=== PATIENT | female | born 1955 | race African-American/Black ===

== ENCOUNTER 2023-02-16 16:11 | Emergency (ER) | payer BC, OTHER ==
[2023-02-16 16:18] VITALS: BP 171/76; PULSE 63; RESP 19; TEMP 98.4; BMI 31.3
[2023-02-16] MEDS ORDERED: ACETAMINOPHEN 325 MG TABLET (FP) PO ONE (18:40)
[2023-02-16] MEDS ORDERED: ACETAMINOPHEN 325 MG TABLET (FP) ONE (18:42)
== END 2023-02-16 19:15 | disposition home or self-care (01) ==
LOC: JERFT 16:11
DX: R51.9 Headache, unspecified (principal)
CPT/HCPCS: 70450-TC; 72125-TC; 99284-25

== ENCOUNTER 2024-11-27 16:35 | Observation (INO) | payer OTHER, BC ==
[2024-11-27 17:02] VITALS: BMI 30.4
[2024-11-27 19:02] LABS: BASO % 0.9 % (0-2.0); EOS % 4.1 % (0-4.5); HEMATOCRIT 35.5 % (32.4-45.2); HEMOGLOBIN 11.6 GM/dL (10.7-15.3); MCH 28.2 pg (25.7-33.7); MCHC 32.6 g/dl (32.0-36.0); MEAN CELL VOLUME 86.5 fl (80-96); MEAN PLT VOLUME 6.7 fl (7.5-11.1); MONO % 7.2 % (3.8-10.2); NEUT % 49.8 % (42.8-82.8); PLATELET COUNT 357 10^3/uL (134-434); RBC 4.11 M/mm3 (3.60-5.2); RDW 15.9 % (11.6-15.6); WHITE BLOOD COUNT 7.2 K/mm3 (4.0-10.0)
[2024-11-27 19:08] LABS: INR 0.9 (0.83-1.09); PROTHROMBIN TIME (PATIENT) 10.2 SEC (9.7-13.0)
[2024-11-27 19:11] LABS: ACTIVATED PTT 28.3 SECONDS (25.2-36.5)
[2024-11-27 19:26] LABS: CHOLESTEROL 159 mg/dL (50-200)
[2024-11-27 19:27] LABS: LDL CHOLESTEROL (ONLY SJRH) 76 mg/dL (5-100); POTASSIUM 4.2 mmol/L (3.5-5.1)
[2024-11-27 19:29] LABS: CALCIUM 9.6 mg/dL (8.5-10.1); HDL CHOLESTEROL 67 mg/dL (40-60)
[2024-11-27 19:30] LABS: ALBUMIN 3.5 g/dl (3.4-5.0)
[2024-11-27 19:33] LABS: CREATININE 1.3 mg/dL (0.55-1.3)
[2024-11-27 19:34] LABS: BILIRUBIN,TOTAL 0.4 mg/dL (0.2-1); TOT PROT 7.2 g/dl (6.4-8.2)
[2024-11-27 21:05] LABS: EPI CELLS 12 /uL (0-25.1); HYALINE CASTS 0 /uL (0-3.1); PH,URINE 5.5 (5.0-8.0); URINE APPEARANCE CLEAR; URINE BACTERIA 3 /uL (0-1359); URINE BILIRUBIN NEGATIVE (NEGATIVE); URINE COLOR YELLOW; URINE GLUCOSE (UA) NEGATIVE (NEGATIVE); URINE KETONE NEGATIVE (NEGATIVE); URINE LEUK ESTERASE NEGATIVE (NEGATIVE); URINE NITRITE NEGATIVE (NEGATIVE); URINE PROTEIN 2+ (NEGATIVE); URINE RBC 9 /uL (0-23.9); URINE UROBILINOGEN 0.2 mg/dL (0.2-1.0); URINE WBC 12 /uL (0-25.8)
[2024-11-28] MEDS: ASPIRIN 325 MG TABLET PO ONE (02:37)
[2024-11-28] MEDS ORDERED: MECLIZINE HCL 25 MG TABLET (FP) PO PRN (04:53)
[2024-11-28] MEDS: MECLIZINE HCL 25 MG TABLET (FP) PO ONE (07:14)
[2024-11-28] MEDS: INSULIN ASPART SLIDING SCALE (NOVOLOG) 1 VIAL SQ SCH (07:14)
[2024-11-28] MEDS: amLODIPine BESYLATE 10 MG TABLET (FP) PO SCH (10:34)
[2024-11-28] MEDS: ENOXAPARIN NA (PORCINE) 40 MG/0.4 ML DISP.SYRIN SQ SCH (10:34)
[2024-11-28] MEDS: ASPIRIN 81 MG CHEWABLE TABLETS PO SCH (10:34)
[2024-11-28] MEDS: LOSARTAN POTASSIUM 50 MG TABLET PO SCH (10:34)
[2024-11-28] MEDS: PANTOPRAZOLE 20 MG TABLET PO SCH (10:35)
[2024-11-28 13:26] VITALS: TEMP 97.7
[2024-11-28 15:08] VITALS: BP 159/68; PULSE 61; RESP 18
[2024-11-28 20:55] LABS: HIV INTERPRETATION NEGATIVE (NEGATIVE)
[2024-11-28] MEDS ORDERED: ATORVASTATIN CA 20 MG TABLET (FP) PO SCH (22:00)
== END 2024-11-28 17:20 | disposition home or self-care (01) ==
LOC: JER 16:35 → UNDOADMOB 22:19 → OBSVTOIN 22:19 → JERBED 22:19 → INTOOBSV 22:19 → JERBED 23:51 → J4W 11-28 04:25 → JERBED 11-28 04:25 → J4W 11-28 04:25
PROVIDERS: ADMIT Internal Medicine; ATTEND Internal Medicine
DX: R42 Dizziness and giddiness (principal); H93.90 Unspecified disorder of ear, unspecified ear; M48.00 Spinal stenosis, site unspecified; E75.5 Other lipid storage disorders; E11.9 Type 2 diabetes mellitus without complications; I10 Essential (primary) hypertension
CPT/HCPCS: 0241U-QW; 36415; 70450-TC; 70551-TC; 71045-TC-FY; 80053; 80061; 81003; 82962; 83036; 84484; 85025; 85610; 85730; 86803; 86850; 86900; 86901; 87389; 93005; 93010; 93306-TC; 99285-25; G0378